=== PATIENT | female | born 1960 | race Caucasian/White ===

== ENCOUNTER 2025-08-16 13:55 | Outpatient (AMB) | payer OTHER, SELFPAY ==
--- NOTE | 2025-08-16 13:57 | A.OFFPC_ITS ---
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 Allergies No Known Allergies Allergy (Verified 08/16/25 14:00) Medication List - Last Reconciled 08/16/25 by SURENDRA Sevilla apixaban (Eliquis) 5 mg PO BID lisinopril 5 mg PO DAILY metoprolol tartrate 50 mg PO DAILY rosuvastatin 20 mg PO DAILY semaglutide (weight loss) (Wegovy) 1.7 mg (0.75 mL) subcut QWEEK Tobacco use date assessed: 08/16/25 Dental Screening Dental Screen Date: 08/16/25 Did you have a dental visit in the last 12 months?: No Did you have a dental problem in the last 6 months where you did not have access to dental care?: No Was dental information given to patient?: Patient has dentist HPI HPI Comments History of Present Illness Details This is a 65-year-old female with a past medical history of hyperlipidemia, hypertension, atrial fibrillation and obesity presenting to [facility]. She is due for a physical. Atrial fibrillation-she had an ablation in 2021. She is on Eliquis and metoprolol. She is followed by Cardiology, Dr. Figueredo, at [facility]. She is due for an appointment in February. She denies palpitations, chest pain and shortness of breath. She has an implantable loop recorder. Hypertension-treated with lisinopril and metoprolol. Her blood pressure is wel l-controlled. She has chronic lower extremity edema. She says this has improved after weight loss on Wegovy. She lost 45 lb. Her initial weight was 245 lb. She denies side effects. She follows a low carbohydrate and controls portion sizes. She avoid sugary foods. Patient endorses bilateral tinnitus since ablation in 2021. She also endorses decreased hearing in her right ear for the past 6 months. She works from home in a quiet area. Denies frequent exposure to loud noises in the past. Denies ear pain, headaches, dizziness. Bilateral knee replacements-NEOS. She still has some pain in his going to call them for follow up. She is walking for exercise. She endorses pain at the base of her left thumb for the past year. She is right-hand dominant. No history of trauma. Orders for mammogram and bone density test sent to [facility]. Declines colonoscopy. Patient is average risk. Cologuard ordered. ROS: Constitutional: No unexplained weight loss, fever, chills, fatigue or night sweats. Eyes: No vision changes, blurry vision, double vision, eye pain, eye redness, eye discharge. ENT: No sudden hearing loss, ear pain sneezing, congestion, runny nose or sore throat. No vertigo. See HPI Respiratory: No shortness of breath, cough or sputum production. Cardiovascular: No chest pain, chest pressure or chest discomfort. No palpitations. +chronic lower extremity edema bilaterally Gastrointestinal: No anorexia, nausea, vomiting or diarrhea. No abdominal pain or blood in stool. Genitourinary: No dysuria, hematuria, urinary frequency. Neurologic: No headache, dizziness, syncope, unilateral weakness, ataxia, numbness or tingling in the extremities. No seizures. Musculoskeletal: See HPI Hematologic/Lymphatics: No bleeding or bruising. No painful lymph nodes. Skin: No rash or itching. No new or changing skin lesions or moles. Endocrine: No cold or heat intolerance. No polyuria or polydipsia. Psychiatric: No depression or anxiety. No SI/HI. Physical exam: Constitutional: Alert, in no distress. Head: Normocephalic. Eyes: Pupils are equal, round and reactive to light. Extraocular muscles intact. Ear, Nose and Throat: Canals clear. TMs normal. Normal nasal mucosa. No nasal discharge. No oral lesions. Neck: Supple, Full range of motion. No lymphadenopathy. No palpable thyroid masses. Respiratory: Clear to auscultation. Cardiovascular: S1 S2 regular. No murmurs. No carotid bruits. Gastrointestinal: Abdomen soft, non-tender, non-distended. Normal bowel sounds. No palpable masses. Neurologic: No focal neurological deficits. Symmetric patellar reflexes. Moves all extremities spontaneously. Sensation intact bilaterally. Skin: No rashes Musculoskeletal: No gross deformities. Normal range of motion. Tender at the base of the left thumb. No erythema or warmth. Extremities: Warm and well perfused. No clubbing, cyanosis. Intact peripheral pulses bilaterally. 1+ bilateral lower extremity edema and varicosities noted. Psychiatric: Normal mood and affect [facility] Medical History (Updated 08/16/25 @ 14:43 by SURENDRA Sevilla) Decreased hearing of right ear Bilateral tinnitus Left hand pain History of atrial fibrillation Pure hypercholesterolemia Routine physical examination Surgical History (Updated 08/16/25 @ 15:16 by Sandy Medel CMA) Status post ablation of incompetent vein using laser History of total right knee replacement (TKR) History of left knee replacement History of cardiac ablation Family History (Updated 08/16/25 @ 15:17 by Sandy Medel CMA) Mother Hypertension Hyperlipemia Diabetes Social History (Updated 08/16/25 @ 14:04 by Sandy Medel CMA) Housing: House Alcohol intake: current Patient Tobacco Use Status: Never used Tobacco e-Cigarette/Vaping Use: Never Used Second Hand Smoke Exposure: No service: No Current occupational status: employed Current occupation: Works from home Current occupational exposures/hazards: No Cognitive needs: No Hearing needs: Yes Vision needs: No Female Reproductive History Menstrual Menopause type: natural Questionnaire PHQ-9 Over the last 2 weeks, how often have you been bothered by any of the following problems? 1. Little interest or pleasure in doing things: not at all 2. Feeling down, depressed, or hopeless: not at all 3. Trouble falling or staying asleep, or sleeping too much: not at all 4. Feeling tired or having little energy: several days 5. Poor appetite or overeating: not at all 6. Feeling bad about yourself - or that you are a failure or have let yourself or your family down: not at all 7. Trouble concentrating on things, such as reading the newspaper or watching television: not at all 8. Moving or speaking so slowly that other people could have noticed. Or the opposite - being so fidgety or restless that you have been moving around a lot more than usual: not at all 9. Thoughts that you would be better off or of hurting yourself in some way: not at all Total score: 1 Depression Screening Interpretation: Negative Depression Screening Done: Yes 03693 - PHQ-9 Billing: Yes Source: Developed by Shalini Egan.W. David, Chava Yap and colleagues, with an educational devi from [employer]. Thrive Questionnaire Date Thrive assessed: 08/16/25 I am a: Patient What is your living situation today?: I have a steady place to live Within the past 12 months, did the food you bought not last and you didn't have the money to get more?: Never true Within the past 12 months, did you worry whether your food would run out before you got money to buy more?: Never true Do you have trouble paying for medicines?: No Do you have trouble getting transportation to medical appointments?: No Do you have trouble paying your heating and electricity bill?: No Do you have trouble taking care of your child, family member or friend?: No Do you have trouble with day-to-day activities such as bathing, preparing meals, shopping, managing finances, etc.?: No Are you currently unemployed and looking for a job?: No Are you interested in more education?: No Please select the resources that you would like help with: None Currently or been in a relationship where the following occur: No concerns reported THRIVE Score: 0 AUDIT C Alcohol Use Questionnaire (AUDIT-C) 1. How often do you have a drink containing alcohol?: 2-4 times a month 2. How many drinks containing alcohol do you have on a typical day when you are drinking?: 1 or 2 3. How often do you have six or more drinks on one occasion?: Never Total Score: 2 ESTEFANY-7 AMB Questionnaire ESTEFANY-7 Date ESTEFANY - 7 assessed: 08/16/25 Feeling nervous, anxious, or on edge: 0 = Not at all Not being able to stop or control worryin = Not at all Worrying too much about different things: 0 = Not at all Trouble relaxin = Not at all Being so restless that it is hard to sit still: 0 = Not at all Becoming easily annoyed or irritable: 0 = Not at all Feeling afraid as if something awful might happen: 0 = Not at all Total ESTEFANY-7 score (0-4 normal; 5-9 mild; 10-14 moderate; 15-21 severe): 0 Source: Developed by Drs. Yunior Noe, Shalini Hernandez, Chava Yap and colleagues, with an educational devi from [employer]. ESTEFANY-7 Assessment Billing ESTEFANY-7 Assessment Tool: ESTEFANY-7 Assessment 69058 Physical exam (Primary Care) Vital Signs: Last Vital Signs Temp 98 F 08/16/25 14:05 Pulse 85 08/16/25 14:05 Resp 15 08/16/25 14:05 BP 114/60 08/16/25 14:05 Pulse Ox 96 08/16/25 14:05 Oxygen Delivery Method Room Air 08/16/25 14:05 BMI result Body Mass Index 31.4 Tobacco/Smoking Status: Tobacco use Status Tobacco use date assessed 08/16/25 08/16/25 14:08 Patient Tobacco Use Status Never used Tobacco 08/16/25 14:08 e-Cigarette/Vaping Use Never Used 08/16/25 14:08 PHQ-9: PHQ-9 Score PHQ-9: Total score 1 08/16/25 15:01 Depression Screening Interpretation: Negative Thrive Assessment: Date of Thrive Assessment Date Thrive assessed 08/16/25 08/16/25 13:59 Currently or been in a relationship where the following occur: No concerns reported Office Procedures Flu Questionnaire Does the patient have a severe egg allergy?: No Does the patient have severe life threatening allergies?: No Has the patient ever had any past reaction to a flu shot?: No Immunizations Fluarix [id number] (PF) 45 mcg (15 mcg x 3)/0.5 mL IM syringe Performing Provider: SURENDRA Sevilla Performing Location: [facility] Administered by: Sandy Medel CMA on 08/16/25 15:00 Dose Route Admin Location Dispensed Lot Number Expiration Date [facility] [employer] Mix[employer] 0.5 mL IM Left Deltoid 0.5 mL [id number] 05/10/26 [id number] [email or web address] VIS Given Date VIS Provided VIS Publication Date 08/16/25 Single Vaccine 24 Eligibility Eligibility Date Funding Source Not [facility] Eligible 08/16/25 Private Coding Level of Care Code New Pt Level 4 (65804) New Pt Prev Care 40-64y(22792) Diagnoses Routine physical examination Z00.00 Pure hypercholesterolemia E78.00 History of atrial fibrillation Z86.79 Left hand pain M79.642 Bilateral tinnitus H93.13 Decreased hearing of right ear H91.91 Additional Codes ESTEFANY-7 Assessment Billing - ESTEFANY-7 Assessment Tool: ESTEFANY-7 Assessment 75802 ([id number]) PHQ-9 - 08827 - PHQ-9 Billing: Yes ([id number]) Assessment & Plan Assessment & Plan (1) Routine physical examination: Code(s): Z00.00 - Encounter for general adult medical examination without abnormal findings Category: Medical Plan: Patient is seen today for a routine physical. As part of this visit we reviewed the following issues, which are considered and essential part of preventative health in this age group: - Breast Cancer screening - Annual Shoe Lining Fitter exam - Screening for colon cancer - Blood pressure screening - Cholesterol screening - Osteoporosis prevention including calcium/vitamin D intake, weight bearing exercise & smoking cessation - Nutritional and exercise counseling - Counseling of injury prevention including fire prevention, smoke alarms and seat belt usage - Screening for depression - Education about skin cancer - Recommendations about immunizations - Recommendation of an eye exam - Screening for substance abuse (2) Pure hypercholesterolemia: Code(s): E78.00 - Pure hypercholesterolemia, unspecified Category: Medical Plan: Continue statin. Recommended low-cholesterol diet. Congratulated on weight loss. Check lipid panel. (3) History of atrial fibrillation: Code(s): Z86.79 - Personal history of other diseases of the circulatory system Category: Medical Plan: Status post ablation. Followed by Cardiology. Patient continues beta-candido and Eliquis. (4) Left hand pain: Code(s): M79.642 - Pain in left hand Category: Medical Plan: Possible de Quervain tenosynovitis or arthritis. Initial evaluation with x-ray ordered. Patient to consider referral for PT/hand surgeon. (5) Bilateral tinnitus: Code(s): H93.13 - Tinnitus, bilateral Category: Medical Plan: Chronic symptoms associated with decreased hearing in the right ear which is also chronic. Advised patient to follow up immediately if she has sudden hearing loss or neurological deficits. Check MRI to rule out acoustic neuroma. Referred to ENT. (6) Decreased hearing of right ear: Code(s): H91.91 - Unspecified hearing loss, right ear Category: Medical Plan She will see Cardiology in six-month and follow up in 1 year here for a physical exam. Orders: Orders Influenza [id number] Immunization Today Z23 - Encounter for immunization Complete Blood Count no Diff Today E78.00 - Pure hypercholesterolemia, unspecified, Z00.00 - Encounter for general adult medical examination without abnormal findings, Z86.79 - Personal history of other diseases of the circulatory system TSH reflex Free T4 Today E78.00 - Pure hypercholesterolemia, unspecified, Z00.00 - Encounter for general adult medical examination without abnormal findings, Z86.79 - Personal history of other diseases of the circulatory system MR head/brain wo con Today H91.91 - Unspecified hearing loss, right ear, H93.13 - Tinnitus, bilateral XR DEXA axial skeleton Today Z78.0 - Asymptomatic menopausal state Lipid Panel Today E78.00 - Pure hypercholesterolemia, unspecified, E78.5 - Hyperlipidemia, unspecified, Z00.00 - Encounter for general adult medical examination without abnormal findings, Z86.79 - Personal history of other diseases of the circulatory system Comprehensive Met. Panel Today E78.00 - Pure hypercholesterolemia, unspecified, Z00.00 - Encounter for general adult medical examination without abnormal findings, Z86.79 - Personal history of other diseases of the circulatory system XR hand LT min 3V Today M79.642 - Pain in left hand MM screening mammo BI Today Z12.31 - Encounter for screening mammogram for malignant neoplasm of breast Referrals Cologuard Test Z12.11 - Encounter for screening for malignant neoplasm of colon Ear/Nose/Throat Referral H91.91 - Unspecified hearing loss, right ear, H93.13 - Tinnitus, bilateral Medications: New semaglutide (weight loss) (Kami) 1.7 mg (0.75 mL) subcut QWEEK 3 mL 5RF
[2025-08-16 14:05] VITALS: BP 114/60; PULSE 85; RESP 15; TEMP 36.6; O2SAT 96; BMI 31.4
--- OUTSIDE RECORDS SUMMARY | 2025-08-16 16:22 | XMS_ITS | Encounter Summary ---
Author Organization [facility] Address [address] [place] [address] Care Team Providers Care Automation Architect Name Role Phone Katie Kennedy Primary Care Provider Unavailabl e Reason for Visit * Reason Onset Date Comments Transthoracic Echo order 05/15/2022 Encounter Details Date Type Department Care Team (Late st Contact Info) Description 05/15/2022 Telephone [facility] Central Scheduling Department [address] [place] [id number] Telephone Intake, Staff Transthoracic Echo order Social History Tobacco Use Types Packs/Day Years Used Date Smoking Tobacco: Never Assessed Comments Unknown Sex and Gender Information Value Date Recorded Sex Assigned at Female 05/21/2022 1:03 PM EDT Legal Sex Female 4:29 PM EDT Gender Identity Female 05/21/2022 1:03 PM EDT Sexual Orientation Straight 05/21/2022 1: 03 PM EDT documented as of this encounter Miscellaneous Notes * Telephone Encounter - Vikki Driscoll - 05/15/2022 2:17 PM EDT Fyi * Telephone Encounter - Kitty Day - 05/15/2022 9:06 AM EDT Pt was seen in hospital. Received a called from Dr. Dalal advising patient to call and book an Echo. An order was placed and cancelled by Dr. Dalal as of 05/13/22. Please look into this for patient. Ok to reach pt back at [phone] documented in this encounter Plan of Treatment Upcoming Encounters Date Type Department Care Team (Late st Contact Info) Description 02/17/2026 8:20 AM EDT Follow-Up [facility] 4th floor Cardiology Medicine [address] [place] [phone] Manager Military: Juanjose Srivastava MD [address] [place] [phone] documented as of this encounter Visit Diagnoses Not on filedocumented in this encounter Care Teams Automation Architect Relationship Specialty Start Date End Date Katie Kennedy PCP - General Internal Medicine 12/06/22 documented as of this encounter
--- OUTSIDE RECORDS SUMMARY | 2025-08-16 16:22 | XMS_ITS | Clinical Summary ---
Author Organization [facility] Address [address] [place] [address] Care Team Providers Care Ssis Developer Name Role Phone Katie Kennedy Primary Care Provider Unavailabl e Allergies No known active allergies Medications ipratropium (ATROVENT) 0.03% nasal spray Administer 2 sprays into each nostril 2 times a day as needed for rhinitis. Active multivitamin (THERAGRAN) tablet Take 1 tablet by mouth once a day. Active lisinopriL (PRINIVIL,ZESTRIL ) 5 mg tabletIndications :Atrial flutter, unspecified type,Paroxysmal atrial fibrillation TAKE 1 TABLET BY MOUTH EVERY DAY 30 tablet 11 4 Active metoprolol succinate XL (TOPROL XL) 50 mg tabletIndications :Paroxysmal atrial fibrillation,Atri al flutter, unspecified type TAKE 1 TABLET BY MOUTH EVERY DAY 30 tablet 11 5 Active rosuvastatin (CRESTOR) 20 mg tablet TAKE 1 TABLET BY MOUTH ONCE A DAY 30 tablet 11 5 Active Eliquis 5 mg tabletIndications :Atrial flutter, unspecified type TAKE 1 TABLET BY MOUTH EVERY 12 HOURS 60 tablet 14 5 Active Active Problems Problem Noted Date Diagnosed Date Atrial flutter 03/15/2023 Paroxysmal atrial fibrillation 03/15/2023 Tachyarrhythmia 05/13/2022 Assessment & Plan (05/13/2022 7:51 AM EDT): Patient presenting with chest pressure, lightheadedness, indigestion. On arrival, troponin negative, K 3.1, magnesium 2. In route to the ED, patient found to have 15 beat run of V. tach that self resolved. EKG showed tachyarrhythmia with PVCs. AR 156, QRS 86, QTc 469. Patient initially tachycardic to 120s and self resolved. Uncertain whether patient had intermittent episodes of atrial flutter, intermittent SVT. Patient admitted to cardiology for further evaluation. - Continue on telemetry - Consider beta-blockade if recurrently tachycardic - K >4, Mg >2 - TTE - Follow-up A1c, TSH, lipid panel Atrial fibrillation with RVR 05/13/2022 Assessment & Plan (05/13/2022 2:05 PM EDT): Patient had an episode of chest discomfort one week prior to presentation and then at presentation. Described as a feeling of food caught in her esophagus with a feeling of world closing in, lightheadedness and feeling faint. It occurred at rest while watching a performance, lasted 1 minute, came and went roughly three times and was non-radiating. No nausea or diaphoresis accompanied it. Upon transport to the hospital she experienced a stretch of tachycardia that self resolved. EKG (AR 156, QRS 86, QTc 469) in ED showed atrial fibrillation with RVR and aberration. Troponin labs were negative twice (0.01) 3 hours apart during visit. Patient lives in [facility] [place] and was allowed to obtain follow-up care there. - Metoprolol succinate 25 mg daily - Advised to find [facility] affiliate PCP - Advised to call [facility] - Advised to schedule TTE Assessment & Plan (05/13/2022 1:36 PM EDT): Hypertension 05/13/2022 Assessment & Plan (05/13/2022 2:02 PM EDT): Patient has not seen PCP in ~20 years. During ACS work-up blood pressure was consistently elevated up to 169/92. Patient is unaware of her normal blood pressure range and is on no medications. -lisinopril 5 mg daily Hyperlipidemia 05/13/2022 Assessment & Plan (05/13/2022 2:02 PM EDT): Patient has not seen PCP in ~20 years. Lipid panel on ACS work-up showed cholesterol at 261 and LDL at 185. -rosuvastatin 10 mg daily Encounters Date Type Department Care Team Description 07/09/2025 Refill [facility] 4th floor Cardiology Medicine [address] [place] [phone] Switch Technician: Juanjose Srivastava MD Atrial flutter, unspecified type (HCC) 06/07/2025 myChart Message [facility] [employer] Telehealth [address] [place] [phone] Mychart, Generic Provider Unable to reach 06/07/2025 myChart Message [facility] [employer] [address] [address] Mychart, Generic Provider Request to Schedule 05/22/[address] floor Cardiology Medicine [address] [place] [phone] Switch Technician: Juanjose Srivastava MD from Last 3 Months Family History Medical History Relation Name Comments Diabetes Mother Heart disease Mother 4V CABG Heart failure Mother Relation Name Status Comments Father Mother (Age 98) Social History Tobacco Use Types Packs/Day Years Used Date Smoking Tobacco: Never Smokeless Tobacco: Never Tobacco Cessation:Counseling Given: Not Answered Alcohol Use Standard Drinks/Week Comments Not Currently 0 (1 standard drink = 0.6 oz pur e alcohol) Comments No Sex and Gender Information Value Date Recorded Sex Assigned at Female 05/21/2022 1:03 PM EDT Legal Sex Female 4:29 PM EDT Gender Identity Female 05/21/2022 1:03 PM EDT Sexual Orientation Straight 05/21/2022 1: 03 PM EDT Last Filed Vital Signs Vital Sign Reading Time Taken Comments Blood Pressure 122/78 02/17/2025 4:35 PM EDT Pulse 77 02/17/2025 4:35 PM EDT Temperature 36.1 C (97 F) 05/28/2023 11:21 AM EDT Respiratory Rate 16 01/13/2024 8:38 AM EST Oxygen Saturation 100% 02/17/2025 4:35 PM EDT Inhaled Oxygen Concentration - - Weight 102.5 kg (225 lb 15.5 oz) 02/17/2025 4:35 PM EDT Height 170.2 cm (5' 7 ) 01/13/2024 8:38 AM EST Body Mass Index 35.39 01/13/2024 8:38 AM EST Plan of Treatment Upcoming Encounters Date Type Department Care Team (Late st Contact Info) Description 02/17/2026 8:20 AM EDT Follow-Up [facility] 4th floor Cardiology Medicine [address] [place] [address] Switch Technician: Juanjose Srivastava MD [address] [place] [phone] Health Maintenance Due Date Last Done Comments Cervical Cancer Screening 1961 Cologuard 1961 Colon Cancer Screening 1961 Colonoscopy 1961 FOBT / Fit Test 1961 HIV Screening 1961 HPV and Pap Smear 1961 Hepatitis C Screening 1961 Pap Smear 1961 Sigmoidoscopy 1961 DTaP,Tdap,and Td Vaccines (1 - Tdap) 1983 Mammogram 2001 Pneumococcal Vaccine: 50+ Years (1 of 1 - PCV) 2011 Zoster Vaccines (1 of 2) 2011 Basic Metabolic Panel 05/16/2024 05/16/2023 , 03/15/2023, 05/13/2022, Additional history exists Alcohol/Substance Use Screening 11/11/2024 Depression Screening and Follow-Up 11/11/2024 Social Drivers of Health Annual Screening 11/11/2024 COVID-19 Vaccine ( - season) 2025 11/10/2021, 03/22/2021, 02/23/2021 Influenza Vaccine (#1) 2025 10/09/2022 RSV Vaccine (60+ years old and patients) (1 - 1-dose 75+ series) 2036 Hepatitis B Vaccines Aged Out No long er eligible based on patient's age to complete this topic Medical Devices Implanted Type Area Surface Supervisor Device Identifier Shelf Expiration Date Model / Serial / Lot System Closure And Repair Suture-Mediat ed Perclose Prostyle - S0 - [id number] Implanted:Qty : 1 on 05/28/2023 by Annabella Zamarripa MD at [facility] Implant Right: [employer] [id number] 02/08/2025 [id number] / 0 / [id number] System Closure And Repair Suture-Mediat ed Perclose Prostyle - S0 - [id number] Implanted:Qty : 1 on 05/28/2023 by Annabella Zamarripa MD at [facility] Implant Right: [employer] [id number] 02/08/2025 [id number] / 0 / [id number] System Closure And Repair Suture-Mediat ed Perclose Prostyle - S0 - [id number] Implanted:Qty : 1 on 05/28/2023 by Annabella Zamarripa MD at [facility] Implant Right: [employer] [id number] 02/08/2025 [id number] / 0 / [id number] Monitor Cardiac Insertable 44.8mmx7.2mm Reveal Linq- 3 Implanted:Qty : 1 on 12/06/2022 by Deshawn Muñoz, WILBERTO Implantable Loop Recorder Chest Wall Med[employer]onic [id number] / [id number] / 1080 Lnq11 Reveal Linq [id number] Implanted: (Quantity not on file) Implantable Loop Recorder Med[employer] LNQ11 REVEAL LINQ / [id number] / 1080 Lnq22 [id number] Implanted: (Quantity not on file) Pacemaker [employer] LNQ22 / [id number] / Procedures * Due to [place] state law, this organization might not be sharing negative HIV tests. Procedure Name Priority Date/Time Associated Diagnosis Comments ILR REMOTE ANALYSIS (IMPLANTABLE LOOP RECORDER) Routine 08/04/2025 3:13 AM EDT Atrial flutter, unspecified type ILR REMOTE ANALYSIS (IMPLANTABLE LOOP RECORDER) Routine 07/04/2025 3:20 AM EDT PAF (paroxysmal atrial fibrillation) (HCC) ILR REMOTE ANALYSIS (IMPLANTABLE LOOP RECORDER) Routine 06/03/2025 3:21 AM EDT PAF (paroxysmal atrial fibrillation) (HCC) BASIC METABOLIC PANEL Routine 05/16/2023 8:03 AM EDT Atrial flutter, unspecified type PAF (paroxysmal atrial fibrillation) Preop examination from Last 3 Months or Most Recently Relevant to Health Maintenance Results * Due to [place] state law, this organization might not be sharing negative HIV tests. * ILR Remote Analysis (Implantable Loop Recorder) (UNV) (08/04/2025 3:13 AM EDT) Only the most recent of3 resultswithin the time period is included. Date Time Interrogation Session [id number] [facility] Type Interrogation Session Remote [facility] Implantable Pulse Generator Surface Supervisor MDT [facility] Implantable Pulse Generator Type Other [facility] Implantable Pulse Generator Model [id number] [facility] Implantable Pulse Generator Serial Number [id number] [facility] Implantable Pulse Generator Implant Date [id number] [facility] 08/04/2025 3:13 AM EDT Impressions [facility] - 08/13/2025 10:54 AM EDT Docket Date: 2025-08-04 Title: Normal Remote: No Events * This is a normal remote diagnostic device check * Alerts or events: None * Battery data was reviewed * Battery status: , * Presenting rhythm reviewed * Heart Rate Histograms reviewed Title: Normal Remote: No Events Remote linq check reveals no new episodes since previous check. Narrative [facility] - 08/13/2025 10:54 AM EDT This report includes 3 total transmissions that were received between 2025-08-04 and 2025-08-04. Battery was reviewed. Procedure Note Annabella Zamarripa MD - 08/13/2025 This report includes 3 total transmissions that were received [id number] and 2025-08-04. Battery was reviewed. IMPRESSION: Docket Date: 2025-08-04 Title: Normal Remote: No Events * This is a normal remote diagnostic device check * Alerts or events: None * Battery data was reviewed * Battery status: , * Presenting rhythm reviewed * Heart Rate Histograms reviewed Title: Normal Remote: No Events Remote linq check reveals no new episodes since previous check. us Juanjose Dalal MD [facility] PROCEDURES F inal Result [facility] * (ABNORMAL) Basic Metabolic Panel (05/16/2023 8:03 AM EDT) NA 138 135 - 145 mmol/L 05/16/2023 10:23 AM EDT [facility] K 4.8 3.5 - 5.3 mmol/L 05/16/2023 10:23 AM EDT [facility] Cl 104 97 - 110 mmol/L 05/16/2023 10:23 AM EDT [facility] CO2 28 24 - 32 mmol/L 05/16/2023 10:23 AM EDT [facility] BUN 12 7 - 23 mg/dL 05/16/2023 10:23 AM EDT [facility] Creatinine 0.67 0.50 - 1.20 mg/dL 05/16/2023 10:23 AM EDT [facility] Glucose 102(H) 70 - 99 mg/dL 05/16/2023 10:23 AM EDT [facility] Calcium 9.5 8.7 - 10.7 mg/dL 05/16/2023 10:23 AM EDT [facility] Anion Gap 6 5 - 15 05/16/2023 10:23 AM EDT [facility] eGFR >90 >=60 mL/min/1. 73m2 05/16/2023 10:23 AM EDT [facility] Comment:The estimated glomer ular filtration rate (eGFR) is calculated using a new formula developed by the NKF-ASN task force to eliminate race-based correction factors. The new formula uses serum/plasma creatinine, age, and gender to determine eGFR. A value below 60mls/min might indicate kidney disease and will be flagged. For additional information, see Trinh et al, Am J Kidney Dis. 2021;79(2):268- 288, A Unifying Approach for GFR estimation: Recommendations of the NKF-ASN Task Force on Reassessing the Inclusion of Race in Diagnosing Kidney Disease . Blood Structure of peripheral vein / Unknown Venipuncture / Unknown 05/16/2023 8:03 AM EDT 05/16/2023 9:[address] us [address] NP LAB BLOOD ORDERABLES Final Re sult [facility] [address] [phone], from Last 3 Months or Most Recently Relevant to Health Maintenance Insurance [employer] Advance Directives * Full Code (Latest Code Status on File) Date Activated Date Inactivated Comments 05/28/2023 11:13 AM 05/28/2023 4:34 PM * Full Code Date Activated Date Inactivated Comments 05/28/2023 6:41 AM 05/28/2023 11:13 AM * Full Code Date Activated Date Inactivated Comments 05/13/2022 6:40 AM 05/13/2022 5:15 PM * Presumed Full Code Date Activated Date Inactivated Comments 05/13/2022 1:56 AM 05/13/2022 6:40 AM Care Teams Ssis Developer Relationship Specialty Start Date End Date Katie Kennedy PCP - General Internal Medicine 12/06/22
--- OUTSIDE RECORDS SUMMARY | 2025-08-16 16:22 | XMS_ITS | Encounter Summary ---
Author Organization [facility] Address [address] [place] [address] Care Team Providers Care Manager Product Name Role Phone Nicole Kennedynne Primary Care Provider Unavailjuan e Encounter Details Date Type Department Care Team (Late st Contact Info) Description 02/04/2023 Telephone [facility] [address] [place] [address] Annabella Zamarripa MD [address] [place] [phone] Social History Tobacco Use Types Packs/Day Years Used Date Smoking Tobacco: Never Smokeless Tobacco: Never Comments Unknown Sex and Gender Information Value Date Recorded Sex Assigned at Female 05/21/2022 1:03 PM EDT Legal Sex Female 4:29 PM EDT Gender Identity Female 05/21/2022 1:03 PM EDT Sexual Orientation Straight 05/21/2022 1: 03 PM EDT documented as of this encounter Plan of Treatment Upcoming Encounters Date Type Department Care Team (Late st Contact Info) Description 02/17/2026 8:20 AM EDT Follow-Up [facility] 4th floor Cardiology Medicine [address] [place] [phone] Manuscripts Archivist: Juanjose Srivastava MD [address] [place] [address] documented as of this encounter Visit Diagnoses Not on filedocumented in this encounter Care Teams Manager Product Relationship Specialty Start Date End Date Katie Kennedy PCP - General Internal Medicine 12/06/22 documented as of this encounter
--- OUTSIDE RECORDS SUMMARY | 2025-08-16 16:22 | XMS_ITS | Encounter Summary ---
Author Organization [facility] Address [address] [place] [address] Care Team Providers Care Dairy Machine Operator Farmworker Name Role Phone Katie Kennedy Primary Care Provider Unavailjuan e Encounter Details Date Type Department Care Team (Late st Contact Info) Description 04/11/2023 myChart Message [facility] Inter[facility] [address] [place] [address] Annabella Zamarripa MD [address] [place] [phone] Your Recent Visit Social History Tobacco Use Types Packs/Day Years [...] Info) Description 02/17/2026 8:20 AM EDT Follow-Up [facility] Building 4th floor Cardiology Medicine [address] [place], [place] [phone] Manager Pricing: Juanjose Srivastava MD [address] [place] [address] documented as of this encounter Visit Diagnoses Not on filedocumented in this encounter Care Teams Dairy Machine Operator Farmworker Relationship Specialty Start Date End Date Katie Kennedy PCP - General Internal Medicine 12/06/22 documented as of this encounter
--- OUTSIDE RECORDS SUMMARY | 2025-08-16 16:22 | XMS_ITS | Encounter Summary ---
Author Organization [facility] Address [address] [place] [address] Care Team Providers Care Learning Strategist Name Role Phone Katie Kennedy Primary Care Provider Unavailjuan e Encounter Details Date Type Department Care Team (Late st Contact Info) Description 04/11/2023 myChart Message [facility] V[facility] Interventional Lab [address] [place] [address] Annabella Zamarripa MD [address] [place] [phone] Your Recent Visit Social History Tobacco Use [...] Info) Description 02/17/2026 8:20 AM EDT Follow-Up [facility] Building 4th floor Cardiology Medicine [address] [place], [place] [phone] Plastic Mixer: Juanjose Srivastava MD [address] [place] [address] documented as of this encounter Visit Diagnoses Not on filedocumented in this encounter Care Teams Learning Strategist Relationship Specialty Start Date End Date Katie Kennedy PCP - General Internal Medicine 12/06/22 documented as of this encounter
== END 2025-08-16 14:57 | disposition home or self-care (01) ==
LOC: HO.HMCFM 13:56
PROVIDERS: PCP Physician Assistant Medical; Visit Provider Physician Assistant Medical
DX: Z00.00 Encounter for general adult medical examination without abnormal findings (principal); M79.642 Pain in left hand; H93.13 Tinnitus, bilateral; H91.91 Unspecified hearing loss, right ear; E78.00 Pure hypercholesterolemia, unspecified; Z86.79 Personal history of other diseases of the circulatory system; Z23 Encounter for immunization

== ENCOUNTER → 2025-08-16 13:55 | Outpatient (BNVA) | payer OTHER, SELFPAY | PROVIDERS: PCP Physician Assistant Medical; Visit Provider Physician Assistant Medical | DX: Z00.00 Encounter for general adult medical examination without abnormal findings (principal); Z23 Encounter for immunization; E78.00 Pure hypercholesterolemia, unspecified; M79.642 Pain in left hand; H93.13 Tinnitus, bilateral; H91.91 Unspecified hearing loss, right ear; Z86.79 Personal history of other diseases of the circulatory system; Z79.01 Long term (current) use of anticoagulants; Z79.899 Other long term (current) drug therapy; Z13.31 Encounter for screening for depression; Z13.39 Encounter for screening examination for other mental health and behavioral disorders | CPT/HCPCS: 90471; 90656; 96127 ==